=== PATIENT | male | born 1990 | race Caucasian/White ===

== ENCOUNTER 2020-02-29 13:10 | Emergency (ER) | payer SELFPAY ==
--- NOTE | 2020-02-29 13:17 | DI.RAD.S_ITS ---
PROCEDURE: XR HAND RT MIN 3V INDICATIONS: fall TECHNIQUE: 3 views of the hand(s) acquired. COMPARISON: None. FINDINGS: Bones: No fractures or dislocations. Carpal bones are normally aligned. No suspicious bony lesions. Soft tissues: No suspicious soft tissue calcifications. IMPRESSION: No visualized acute fracture or dislocation. However, if clinical concern and/or pain persist, short interval imaging followup in 7-10 days is recommended, as occult injury cannot be definitively excluded. Dictated by: Sarah Velez M.D. on 02/29/2020 at 13:55 Approved by: Sarah Velez M.D. on 02/29/2020 at 13:57
[2020-02-29 13:19] VITALS: BP 112/52; PULSE 77; RESP 18; TEMP 36.6; O2SAT 98
--- NOTE | 2020-02-29 13:27 | ED_ITS ---
HPI - Extremity Injury (Upper) <MIRANDA RuelasP - Last Filed: 02/29/20 14:24> General Chief Complaint: Extremity Injury, Upper Stated Complaint: INJURED RIGHT HAND SKATEBOARDING 02/26 Time Seen by Provider: 02/29/20 13:18 Source: patient Mode of arrival: Ambulatory Limitations: no limitations History of Present Illness HPI narrative: This is a 29-year-old male, smoker, who presents to ED with chief complain of right lateral metacarpal discomfort for last 2 days. Patient left dominant hand. Patient reports he was skateboarding in the house and accidentally fell off skateboard and landed on a carpeted floor punched with affected hand with all his weight to break the fall. Patient reports right hand swelling and discomfort with movement of his fingers and hand which radiating up to ulna aspect of forearm. He reports intact sensation. 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 Patient denies home therapy using ice or medications after the injury. Patient denies previous injury to affected hand. Patient denies injuring his head or other areas from this fall. Related Data Allergies Allergy/AdvReac Type Severity Reaction Status Date / Time No Known Drug Allergies Allergy Verified 02/29/20 13:49 [facility] Systems [facility] Last Filed: 02/29/20 14:24> Review of Systems Narrative: General: Denies fever, chills, fatigue, malaise, sweats. HEENT: Denies sinus pain, ear pain, sore throat, difficulty swallowing, dizziness. Respiratory: Denies dyspnea, cough, wheezing, hemoptysis, sputum. Cardiovascular: Denies chest pain, palpitations, orthopnea, edema. Gastrointestinal: Denies nausea, vomiting, abdominal pain, diarrhea, constipation, melena. : Denies dysuria, frequency, incontinence, hematuria, urinary retention. Musculoskeletal: See HPI Skin: Denies rash, skin lesions, or other. Neurologic: Denies weakness, headache, numbness, change in speech, confusion, seizures, incoordination. Psychiatric: No concerning psychosocial issues. 12-point review of systems is negative except for those stated above. Patient History [facility] Last Filed: 02/29/20 14:24> Medical History Pulmonary stenosis (Acute) Social History Smoking Status: Current every day smoker Smoking Status: Current every day smoker alcohol intake frequency: a few times a week Substance Use Type: does not use Exam <NAT Ruelas - Last Filed: 02/29/20 14:24> Narrative Exam Narrative: General appearance: well developed, well nourished, in no acute distress. Head: normocephalic, atraumatic, no scalp lesions, non-tender. ENT: Hearing grossly intact. Airway patent. Neck/Thyroid: neck supple, full range of motion, no visible masses or meningeal signs. No JVD, non-tender without lymphadenopathy. Skin: no suspicious rashes, lesions over visible areas. Warm and dry and appropriate color for ethnicity. Heart: no clubbing, no cyanosis, no edema. Lungs: Breathing even and unlabored. No stridor. No accessory muscles used. Able to speak in full sentences. Chest: normal shape and expansion. Abdomen: non-obese, non-distended. Neurologic: alert and oriented. Cognitive exam, [employer] and PNS grossly intact on informal exam. Psych: good eye contact, normal affect. Initial Vital Signs Initial Vital Signs: Vital Signs Temperature 98 F 02/29/20 13:19 Pulse Rate 77 02/29/20 13:19 Respiratory Rate 18 02/29/20 13:19 Blood Pressure 112/52 L 02/29/20 13:19 Pulse Oximetry 98 02/29/20 13:19 Extrem Right upper extremity: shoulder/upper arm Details: normal to inspection; no tenderness and no swelling, elbow/forearm Details: normal to inspection; no tenderness and no swelling, wrist Details: normal to inspection, normal ROM and radial pulse present; no tenderness and no swelling and hand Details: abnormal to inspection, normal capillary refill, neuromotor exam abnormal, neurosensory exam normal, tenderness Location: of the dorsal hand, vascular exam Details: radial pulse present and normal capillary refill, normal ROM of fingers and swelling Location: of the dorsal hand Location: over the ulnar aspect; no unusual warmth, no abrasions, no lacerations and no ecchymosis <Any Mckeon DO - Last Filed: 03/02/20 08:28> Initial Vital Signs Initial Vital Signs: Vital Signs Temperature 98 F 02/29/20 13:19 Pulse Rate 77 02/29/20 13:19 Respiratory Rate 18 02/29/20 13:19 Blood Pressure 112/52 L 02/29/20 13:19 Pulse Oximetry 98 02/29/20 13:19 Procedures <NAT Ruelas - Last Filed: 02/29/20 14:24> Orthopedic Splinting/Casting Injury #1: Side: right Upper Extremity Injury Location: hand Upper Extremity Immobilizer: Gustavo wrap Post splinting neuro exam: intact Post splinting vascular exam: intact Placed by: Nursing Scores <NAT Ruelas - Last Filed: 02/29/20 14:24> GCS [place] coma scale eye opening: Spontaneous John coma scale verbal response: Orientated [place] coma scale motor response: Obey commands [place] coma scale total score: 15 Course <NAT Ruelas - Last Filed: 02/29/20 14:24> Orders Ordered: Discontinued Medications Acetaminophen (Tylenol) 650 mg PO NOW ONE Stop: 02/29/20 13:27 Last Admin: 02/29/20 13:33 Dose: 650 mg Documented by: VÍCTOR Ibuprofen (Advil) 400 mg PO NOW ONE Stop: 02/29/20 13:27 Last Admin: 02/29/20 13:34 Dose: 400 mg Documented by: VÍCTOR Vital Signs Vital signs: Vital Signs - 8 hr 02/29/20 13:19 Temperature 98 F Pulse Rate 77 Respiratory Rate 18 Blood Pressure 112/52 L Pulse Oximetry 98 <Any Mckeon DO - Last Filed: 03/02/20 08:28> Orders Ordered: Discontinued Medications Acetaminophen (Tylenol) 650 mg PO NOW ONE Stop: 02/29/20 13:27 Last Admin: 02/29/20 13:33 Dose: 650 mg Documented by: VÍCTOR Ibuprofen (Advil) 400 mg PO NOW ONE Stop: 02/29/20 13:27 Last Admin: 02/29/20 13:34 Dose: 400 mg Documented by: VÍCTOR Vital Signs Vital signs: Vital Signs - 8 hr 02/29/20 13:19 Temperature 98 F Pulse Rate 77 Respiratory Rate 18 Blood Pressure 112/52 L Pulse Oximetry 98 MDM - Extremity Injury (Upper) <NAT Ruelas - Last Filed: 02/29/20 14:24> Differential Diagnosis Differential diagnosis: Likely fracture of hand and other (contusion hand) Medical Records Attestation: I reviewed the patient's medical records. Imaging Data XR-Hand RT: Radiologist's Impression: [address] [address] XRay Report Signed Patient: Willie HintonMR#: [id number] : 1990Acct:[id number] Age/Sex: 29 / MDate of Service: 02/29/20 Loc: ED Accession Number: [id number] Procedure: XR hand RT min 3V Ordering Provider: Case Sullivan PROCEDURE: XR HAND RT MIN 3V INDICATIONS: fall TECHNIQUE: 3 views of the hand(s) acquired. COMPARISON: None. FINDINGS: Bones: No fractures or dislocations. Carpal bones are normally aligned. No suspicious bony lesions. Soft tissues: No suspicious soft tissue calcifications. IMPRESSION: No visualized acute fracture or dislocation. However, if clinical concern and/or pain persist, short interval imaging followup in 7-10 days is recommended, as occult injury cannot be definitively excluded. Dictated by: Sarah Velez M.D. on 02/29/2020 at 13:55 Approved by: Sarah Velez M.D. on 02/29/2020 at 13:57 [facility] Narrative Medical decision making narrative: This is a 29-year-old male who had fell of skateboard and landed on carpeted floor with right fist with all his weight 2 nights ago. Patient reports discomfort in lateral metacarpal of right non dominant hand with swelling. Intact sensation and distal pulses. X-ray test does not show acute findings such as fractures or dislocations. Applied with Gustavo wrap on affected hand for immobilization. Advised to take [id number] Tylenol and or Motrin as needed for discomfort. Patient provided with [facility] Resource contact number to arrange primary care physician and to repeat x-ray test with persistent pain. Patient verbalized understanding and agreement with the treatment plan. Discharge Plan Departure Patient Disposition: Home Clinical Impression: Contusion of hand Qualifiers: Encounter type: initial encounter Laterality: right Qualified Code(s): S60.221A - Contusion of right hand, initial encounter Discharge Date/Time: 02/29/20 14:30 Instructions: DI for Contusion Activity Restrictions/Additional Instructions: You have been diagnosed with [right hand contusion. X-ray test does not show acute fractures or dislocation.]. What to do: *Take your medications as directed. Please take [id number] Tylenol and or Motrin as needed for discomfort and inflammation. Use Gustavo wrap as immobilizer. *Follow up with your primary care provider in 2-3 days, call for an appointment. Let them know you were seen in the ED and that we asked you to be seen in follow up. *Return to ED if you have any new, worsening, or concerning symptoms, such as [worsening pain, chest pain, breathing difficulty, unable to tolerate fluids, increasing weakness/tingling/numbness to affected hand or any acute concerns]. Referrals: [facility] Resources [Outside] Miscellaneous,[facility] [Primary Care Provider] - <Any Mckeon DO - Last Filed: 03/02/20 08:28> Cosign ED Attending Izabelature Attestation: I was immediately available in the department for consultation. Documentation has been reviewed. I agree with assessment and plan.
[2020-02-29] MEDS: ACETAMINOPHEN 325 MG TABLET 650 MG PO (13:33)
[2020-02-29] MEDS: IBUPROFEN 400 MG TABLET PO (13:34)
[2020-02-29 14:30] VITALS: BP 115/62; PULSE 70; RESP 18; O2SAT 99
== END 2020-02-29 14:30 | disposition home or self-care (01) ==
PROVIDERS: Emergency Provider Nurse Practitioner Family
DX: S60.221A Contusion of right hand, initial encounter (principal); V00.131A Fall from skateboard, initial encounter
CPT/HCPCS: 73130; 99283